=== PATIENT | male | born 1935 | race Caucasian/White ===

== ENCOUNTER 2022-05-27 10:23 | Outpatient (CLI) | payer MEDICARE, BC | END 2022-05-27 10:24 | disposition home or self-care (01) | LOC: BICULT 10:23 | PROVIDERS: ATTEND Internal Medicine Nephrology | DX: N18.30 Chronic kidney disease, stage 3 unspecified (principal) | CPT/HCPCS: 76770 ==

== ENCOUNTER 2023-03-29 16:40 | Inpatient (IN) | payer MEDICARE, BC ==
[2023-03-29] MEDS ORDERED: niCARdipine 25 MG/10 ML SDV ONE (17:28)
[2023-03-29 17:37] LABS: Bilirubin Negative (Negative); Blood, Urine Negative (Negative); CAUTI Indications for Culture Alt mental st,lethar; Clarity Clear (Clear); Glucose, Urine (Dipstick) Normal (Negative); Ketone, Urine Negative (Negative); Leukocyte Negative Leu/uL (Negative); Nitrite Negative (Negative); Protein, Urine (Dipstick) Negative (Neg-Trace); RBC/HPF 0-3 HPF (0-3); Specific Gravity, Urine 1.016 (1.002-1.036); Squamous Epithelial None Seen HPF (0-3); Urobilinogen Normal mg/dL (Less than 2); WBC/HPF 0-3 HPF (0-3)
[2023-03-29 17:42] LABS: Bacteria/HPF 1+ HPF (None Seen)
[2023-03-29 17:42] LABS: #Basophils 0.1 thou/uL (0.0-0.2); #Eosinphils 0.1 thou/uL (0.0-0.7); #Monocytes 0.9 thou/uL (0.11-0.59); #Neutrophils 8.7 thou/uL (1.40-6.50); %Basophils 0.6 % (0.0-1.0); %Lymphocytes 15.5 % (21.0-51.0); %Monocytes 7.4 % (0.0-10.0); %Neutrophils 74.9 % (42.0-75.0); Hematocrit 40.5 % (42.0-52.0); Mean Corpuscular HGB CONC 32.1 g/dL (32.0-36.0); Mean Corpuscular Hemoglobin 29.8 pg (27.0-31.0); Mean Corpuscular Volume 92.9 fl (78.0-98.0); Mean Platelet Volume 11.9 fL (7.4-10.4); Platelet Count 138 10x3/uL (130-400); RBC Distribution Width 14.6 % (11.5-14.5); Red Blood Cell (RBC) Count 4.36 mill/uL (4.70-6.10); White Blood Cell (WBC) Count 11.6 10x3/uL (4.8-10.8)
[2023-03-29] MEDS ORDERED: Boostrix 0.5 ML (Tdap) VIAL (>/=7 yrs of age) ONE (17:42)
[2023-03-29 17:43] LABS: Urine Culture Reflex No No
[2023-03-29] MEDS ORDERED: Glucagon 1 MG/ML KIT IM PRN (18:00)
[2023-03-29] MEDS ORDERED: Dextrose 5% in Water 1,000 ML IV PRN (18:00)
[2023-03-29] MEDS ORDERED: TETANUS, DIPHTHERIA TOX,ADULT (TDVAX) 0.5 ML VIAL IM ONE (18:00)
[2023-03-29] MEDS ORDERED: Dextrose 50% Abboject 50 ML SYRINGE SLOW IVP PRN (18:00)
[2023-03-29 18:03] LABS: ALT (SGPT) 12 U/L (8-55); AST (SGOT) 20 U/L (5-34); Albumin 3.8 g/dL (3.4-4.8); Alkaline Phosphatase 68 U/L (40-110); Anion Gap 14 mmol/L (10-20); BUN (Urea Nitrogen) 19 mg/dL (8.4-25.7); Bilirubin, Total 0.3 mg/dL (0.2-1.2); Calc. Creatinine Clearance 0 mL/min (70-130); Carbon Dioxide 22 mmol/L (23-31); Chloride 108 mmol/L (98-107); Estimated GFR 62; Globulin 2.5 g/dL (2.4-3.5); Glucose 93 mg/dL (83-110); Potassium 3.5 mmol/L (3.5-5.1); Protein, Total 6.3 g/dL (5.8-8.1); Sodium 140 mmol/L (136-145)
[2023-03-29] MEDS ORDERED: Morphine 2 MG/ML VIAL SLOW IVP PRN (18:11)
[2023-03-29] MEDS ORDERED: Ipratropium/Albuterol 3 ML NEB NEB PRN (18:11)
[2023-03-29] MEDS ORDERED: Ondansetron ODT 4 MG TAB PO PRN (18:11)
[2023-03-29] MEDS ORDERED: niCARdipine 25 MG in Sodium Chloride 0.9% 250 ML 250 ML IVPB SCH (18:45)
[2023-03-29] MEDS ORDERED: Electrolyte Replacement Protocol 1 EACH FS SCH (19:00)
[2023-03-29] MEDS: Acetaminophen 325 MG TAB PO SCH ×2 (21:08→23:32)
[2023-03-29 21:10] VITALS: BMI 26.0
[2023-03-29] MEDS: niCARdipine 50 MG, Admixture Fee 1 EACH in Sodium Chloride 0.9% 250 ML 230 ML IV SCH (21:32)
[2023-03-29] MEDS: Famotidine 20 MG TAB PO SCH (21:44)
[2023-03-30] MEDS: niCARdipine 50 MG, Admixture Fee 1 EACH in Sodium Chloride 0.9% 250 ML 230 ML IV SCH ×2 (00:53→07:48)
[2023-03-30 04:18] LABS: Phosphorus 3.7 mg/dL (2.3-4.7)
[2023-03-30 04:21] LABS: Anion Gap 14 mmol/L (10-20); BUN (Urea Nitrogen) 25 mg/dL (8.4-25.7); Calc. Creatinine Clearance 57 mL/min (70-130); Calcium 8.5 mg/dL (7.8-10.44); Carbon Dioxide 23 mmol/L (23-31); Chloride 109 mmol/L (98-107); Estimated GFR 60; Glucose 123 mg/dL (83-110); Magnesium 1.9 mg/dL (1.6-2.6); Potassium 3.7 mmol/L (3.5-5.1); Sodium 142 mmol/L (136-145)
[2023-03-30 04:22] LABS: INR-International Normal Ratio 1.1; PTT 27.8 sec (22.9-36.1); Prothrombin Time 14.8 sec (12.0-14.7)
[2023-03-30] MEDS: Acetaminophen 325 MG TAB PO SCH ×3 (05:50→17:32)
[2023-03-30] MEDS: Famotidine 20 MG TAB PO SCH ×2 (07:45→21:24)
[2023-03-30] MEDS ORDERED: Magnesium 2 GM/50 ML(in water) 2 GM in Premix 1 BAG IVPB SCH (08:00)
[2023-03-30] MEDS ORDERED: Hydrochlorothiazide 25 MG TAB PO SCH (09:00)
[2023-03-30] MEDS ORDERED: Atenolol 25 MG TAB PO SCH ×3 (09:00→16:15)
[2023-03-30] MEDS: Levothyroxine Sodium 100 MCG TAB PO SCH (09:01)
[2023-03-30] MEDS: HumaLOG 300 UNITS/3 ML VIAL SC PRN ×2 (11:34→17:32)
[2023-03-30] MEDS: Labetalol HCl 100 MG/20 ML VIAL SLOW IVP PRN (20:07)
[2023-03-30] MEDS: Lorazepam 2 MG/ML VIAL SLOW IVP PRN (20:31)
[2023-03-30] MEDS ORDERED: OLANZapine 10 MG VIAL IM SCH (21:30)
[2023-03-30] MEDS ORDERED: Sterile Water 10 ML VIAL FS PRN (21:30)
[2023-03-30] MEDS ORDERED: HumaLOG 300 UNITS/3 ML VIAL SC PRN (21:39)
[2023-03-31] MEDS: Acetaminophen 325 MG TAB PO SCH ×5 (00:56→18:07)
[2023-03-31] MEDS: Labetalol HCl 100 MG/20 ML VIAL SLOW IVP PRN ×2 (01:12→05:02)
[2023-03-31] MEDS: Lorazepam 2 MG/ML VIAL SLOW IVP PRN (02:32)
[2023-03-31] MEDS: hydrALAZINE 20 MG/ML VIAL SLOW IVP PRN ×2 (03:08→07:06)
[2023-03-31 06:56] LABS: #Basophils 0.1 thou/uL (0.0-0.2); #Eosinphils 0.1 thou/uL (0.0-0.7); #Monocytes 1.4 thou/uL (0.11-0.59); #Neutrophils 8.5 thou/uL (1.40-6.50); %Basophils 0.5 % (0.0-1.0); %Eosinophils 1.1 % (0.0-10.0); %Lymphocytes 19.1 % (21.0-51.0); %Monocytes 10.9 % (0.0-10.0); %Neutrophils 68.1 % (42.0-75.0); Hematocrit 38.5 % (42.0-52.0); Hemoglobin 12.5 g/dL (14.0-18.0); Mean Corpuscular HGB CONC 32.5 g/dL (32.0-36.0); Mean Corpuscular Hemoglobin 29.6 pg (27.0-31.0); Mean Platelet Volume 12.3 fL (7.4-10.4); Platelet Count 143 10x3/uL (130-400); RBC Distribution Width 14.6 % (11.5-14.5); Red Blood Cell (RBC) Count 4.23 mill/uL (4.70-6.10); White Blood Cell (WBC) Count 12.4 10x3/uL (4.8-10.8)
[2023-03-31 07:20] LABS: Anion Gap 16 mmol/L (10-20); BUN (Urea Nitrogen) 24 mg/dL (8.4-25.7); Calc. Creatinine Clearance 48 mL/min (70-130); Calcium 9.1 mg/dL (7.8-10.44); Carbon Dioxide 24 mmol/L (23-31); Chloride 104 mmol/L (98-107); Estimated GFR 49; Glucose 134 mg/dL (83-110); Potassium 3.8 mmol/L (3.5-5.1); Sodium 140 mmol/L (136-145)
[2023-03-31] MEDS ORDERED: Sodium Chloride 0.9% 500 ML IV SCH (08:15)
[2023-03-31] MEDS: Famotidine 20 MG TAB PO SCH ×2 (08:21→21:18)
[2023-03-31] MEDS: Levothyroxine Sodium 100 MCG TAB PO SCH (08:21)
[2023-03-31] MEDS: Amlodipine 10 MG TAB PO SCH (08:35)
[2023-03-31] MEDS: Tamsulosin HCl 0.4 MG CAP PO SCH (08:35)
[2023-03-31] MEDS ORDERED: Atenolol 25 MG TAB PO SCH (09:00)
[2023-03-31 12:25] LABS: Phosphorus 3.2 mg/dL (2.3-4.7)
[2023-03-31 12:41] LABS: Troponin I 1.006 ng/mL (< 0.028)
[2023-03-31] MEDS ORDERED: Magnesium 2 GM/50 ML(in water) 2 GM in Premix 1 BAG IVPB SCH (14:00)
[2023-03-31 15:58] LABS: Troponin I 0.952 ng/mL (< 0.028)
[2023-03-31] MEDS: HumaLOG 300 UNITS/3 ML VIAL SC PRN (17:16)
[2023-03-31 18:19] LABS: Troponin I 0.803 ng/mL (< 0.028)
[2023-03-31] MEDS: Melatonin 3 MG TAB PO SCH (21:18)
[2023-03-31] MEDS: QUEtiapine 25 MG TAB PO SCH (21:19)
[2023-04-01] MEDS: Acetaminophen 325 MG TAB PO SCH ×4 (01:14→17:22)
[2023-04-01] MEDS: hydrALAZINE 20 MG/ML VIAL SLOW IVP PRN ×2 (01:38→04:48)
[2023-04-01] MEDS: HumaLOG 300 UNITS/3 ML VIAL SC PRN ×2 (05:34→12:36)
[2023-04-01 07:02] LABS: Magnesium 2.2 mg/dL (1.6-2.6); Phosphorus 2.9 mg/dL (2.3-4.7)
[2023-04-01] MEDS: Levothyroxine Sodium 100 MCG TAB PO SCH (08:17)
[2023-04-01 08:40] LABS: #Eosinphils 0.2 thou/uL (0.0-0.7); #Neutrophils 7.8 thou/uL (1.40-6.50); %Basophils 0.2 % (0.0-1.0); %Eosinophils 1.6 % (0.0-10.0); %Lymphocytes 14.8 % (21.0-51.0); %Monocytes 9.7 % (0.0-10.0); %Neutrophils 73.4 % (42.0-75.0); Hematocrit 38.2 % (42.0-52.0); Hemoglobin 12.6 g/dL (14.0-18.0); Mean Corpuscular Hemoglobin 30.1 pg (27.0-31.0); Mean Corpuscular Volume 91.4 fl (78.0-98.0); Mean Platelet Volume 11.5 fL (7.4-10.4); Platelet Count 159 10x3/uL (130-400); RBC Distribution Width 14.6 % (11.5-14.5); Red Blood Cell (RBC) Count 4.18 mill/uL (4.70-6.10); White Blood Cell (WBC) Count 10.6 10x3/uL (4.8-10.8)
[2023-04-01] MEDS: Senokot S 8.6-50 MG TAB PO SCH ×2 (09:31→21:16)
[2023-04-01] MEDS: Amlodipine 10 MG TAB PO SCH (09:31)
[2023-04-01] MEDS: Polyethylene Glycol 3350 17 GM Packet PO SCH (09:31)
[2023-04-01] MEDS: Tamsulosin HCl 0.4 MG CAP PO SCH (09:31)
[2023-04-01 14:53] LABS: Anion Gap 16 mmol/L (10-20); BUN (Urea Nitrogen) 29 mg/dL (8.4-25.7); Calc. Creatinine Clearance 43 mL/min (70-130); Calcium 9.5 mg/dL (7.8-10.44); Carbon Dioxide 26 mmol/L (23-31); Chloride 103 mmol/L (98-107); Estimated GFR 43; Glucose 152 mg/dL (83-110); Potassium 3.6 mmol/L (3.5-5.1); Sodium 141 mmol/L (136-145)
[2023-04-01] MEDS ORDERED: ALPRAZolam 1 MG TAB PO PRN (14:55)
[2023-04-01] MEDS: Citalopram 20 MG TAB PO SCH (17:21)
[2023-04-01] MEDS ORDERED: Famotidine 20 MG TAB PO SCH (21:00)
[2023-04-01] MEDS: Melatonin 3 MG TAB PO SCH (21:16)
[2023-04-01] MEDS: Rosuvastatin 20 MG TAB PO SCH (21:16)
[2023-04-01] MEDS: QUEtiapine 25 MG TAB PO SCH (21:16)
[2023-04-02] MEDS: Acetaminophen 325 MG TAB PO SCH ×5 (01:45→23:58)
[2023-04-02 04:51] LABS: Anion Gap 14 mmol/L (10-20); BUN (Urea Nitrogen) 35 mg/dL (8.4-25.7); Calc. Creatinine Clearance 45 mL/min (70-130); Calcium 8.6 mg/dL (7.8-10.44); Carbon Dioxide 24 mmol/L (23-31); Chloride 107 mmol/L (98-107); Estimated GFR 45; Glucose 113 mg/dL (83-110); Potassium 3.2 mmol/L (3.5-5.1); Sodium 142 mmol/L (136-145)
[2023-04-02 04:59] LABS: Troponin I 0.375 ng/mL (< 0.028)
[2023-04-02] MEDS: Levothyroxine Sodium 100 MCG TAB PO SCH (06:08)
[2023-04-02] MEDS ORDERED: Potassium Chloride 20 MEQ TAB PO SCH (08:00)
[2023-04-02] MEDS: Polyethylene Glycol 3350 17 GM Packet PO SCH (09:20)
[2023-04-02] MEDS: Gabapentin 100 MG CAP PO SCH (09:21)
[2023-04-02] MEDS: Tamsulosin HCl 0.4 MG CAP PO SCH (09:21)
[2023-04-02] MEDS: CO Q-10 CAPSULE 100 MG PO SCH (09:22)
[2023-04-02] MEDS: Senokot S 8.6-50 MG TAB PO SCH ×2 (09:22→20:28)
[2023-04-02] MEDS: Citalopram 20 MG TAB PO SCH ×2 (09:23→17:29)
[2023-04-02] MEDS: Amlodipine 10 MG TAB PO SCH (09:25)
[2023-04-02] MEDS: HumaLOG 300 UNITS/3 ML VIAL SC PRN ×2 (12:24→17:33)
[2023-04-02] MEDS ORDERED: Potassium Phosphate 30 MMOL in Sodium Chloride 0.9% 250 ML 250 ML IVPB SCH (13:30)
[2023-04-02 14:12] LABS: Potassium 3.9 mmol/L (3.5-5.1)
[2023-04-02] MEDS: Melatonin 3 MG TAB PO SCH (20:27)
[2023-04-02] MEDS: Rosuvastatin 20 MG TAB PO SCH (20:28)
[2023-04-03] MEDS: Acetaminophen 325 MG TAB PO SCH ×2 (05:44→12:15)
[2023-04-03] MEDS: Levothyroxine Sodium 100 MCG TAB PO SCH (05:44)
[2023-04-03] MEDS ORDERED: Lidocaine 1% (PF) 30 ML VIAL ONE (07:00)
[2023-04-03] MEDS ORDERED: Gentamicin 80 MG/2 ML VIAL ONE (07:00)
[2023-04-03] MEDS ORDERED: Midazolam HCl 2 mg/2 ml Vial ONE (07:00)
[2023-04-03] MEDS ORDERED: CEFAZOLIN 2 GM VIAL ONE (07:00)
[2023-04-03] MEDS ORDERED: CEFAZOLIN 1 GM VIAL ONE (07:00)
[2023-04-03] MEDS ORDERED: Atenolol 25 MG TAB PO SCH (09:00)
[2023-04-03] MEDS: CO Q-10 CAPSULE 100 MG PO SCH (10:21)
[2023-04-03] MEDS: Polyethylene Glycol 3350 17 GM Packet PO SCH (10:21)
[2023-04-03] MEDS: Gabapentin 100 MG CAP PO SCH (10:22)
[2023-04-03] MEDS: Tamsulosin HCl 0.4 MG CAP PO SCH (10:22)
[2023-04-03] MEDS: Citalopram 20 MG TAB PO SCH ×2 (10:22→17:10)
[2023-04-03] MEDS: Amlodipine 10 MG TAB PO SCH (10:22)
[2023-04-03] MEDS: Senokot S 8.6-50 MG TAB PO SCH (10:23)
[2023-04-03] MEDS: hydrALAZINE 20 MG/ML VIAL SLOW IVP PRN ×2 (14:04→17:19)
[2023-04-03 17:15] VITALS: BP 167/74; TEMP 98.1
[2023-04-03] MEDS: HumaLOG 300 UNITS/3 ML VIAL SC PRN (17:19)
[2023-04-04] MEDS ORDERED: Amlodipine 10 MG TAB PO SCH (09:00)
[2023-04-04] MEDS ORDERED: Amlodipine 5 MG TAB PO SCH (09:00)
== END 2023-04-03 18:08 | disposition swing bed (61) | DRG 41 ==
LOC: ERS 16:40 → CCU 18:23 → 2NO 04-01 16:44
PROVIDERS: ADMIT Specialist; ATTEND Specialist
PROC: 02H63JZ Insertion of Pacemaker Lead into Right Atrium, Percutaneous Approach (ICD-10-PCS; principal; 2023-04-03)
PROC: 02HK3JZ Insertion of Pacemaker Lead into Right Ventricle, Percutaneous Approach (ICD-10-PCS; 2023-04-03)
PROC: 0JH606Z Insertion of Pacemaker, Dual Chamber into Chest Subcutaneous Tissue and Fascia, Open Approach (ICD-10-PCS; 2023-04-03)
DX: S06.6XAA Traumatic subarachnoid hemorrhage with loss of consciousness status unknown, initial encounter (principal); G93.40 Encephalopathy, unspecified; N17.9 Acute kidney failure, unspecified; I49.5 Sick sinus syndrome; S00.03XA Contusion of scalp, initial encounter; R10.9 Unspecified abdominal pain; E78.5 Hyperlipidemia, unspecified; S00.83XA Contusion of other part of head, initial encounter; W18.30XA Fall on same level, unspecified, initial encounter; R40.2410 Glasgow coma scale score 13-15, unspecified time; N18.9 Chronic kidney disease, unspecified; I12.9 Hypertensive chronic kidney disease with stage 1 through stage 4 chronic kidney disease, or unspecified chronic kidney disease; E11.22 Type 2 diabetes mellitus with diabetic chronic kidney disease; E03.9 Hypothyroidism, unspecified; N40.0 Benign prostatic hyperplasia without lower urinary tract symptoms; E75.6 Lipid storage disorder, unspecified; G89.11 Acute pain due to trauma; Z79.890 Hormone replacement therapy; Z79.899 Other long term (current) drug therapy; Z98.890 Other specified postprocedural states; Z79.84 Long term (current) use of oral hypoglycemic drugs
CPT/HCPCS: 33208; 36415; 36416; 70450; 71045; 72125; 80048; 80053; 81001; 83735; 83880; 84100; 84484; 85025; 85610; 85730; 90471; 90714; 90715; 93005; 93010; 93306; 93880; 96365; 96366; C1785; C1898; J0360; J0690; J1580; J1815; J2001; J2060; J2250; J3475; J7030; J7050

== ENCOUNTER 2023-12-22 19:42 | Inpatient (IN) | payer MEDICARE, BC ==
[2023-12-22] MEDS ORDERED: Ondansetron ODT 4 MG TAB PO PRN (21:03)
[2023-12-22] MEDS ORDERED: Ondansetron PF 4 MG/2 ML Vial IVP PRN (21:03)
[2023-12-22] MEDS ORDERED: Acetaminophen 650 MG Suppository PR PRN (21:03)
[2023-12-22 22:32] LABS: #Basophils 0.05 10x3/uL (0.0-0.2); %Basophils 0.4 % (0.0-1.0); %Eosinophils 2.3 % (0.0-10.0); %Lymphocytes 15.2 % (21.0-51.0); %Monocytes 11.4 % (0.0-10.0); %Neutrophils 70.2 % (42.0-75.0); Hematocrit 38.7 % (42.0-52.0); Hemoglobin 12.6 g/dL (14.0-18.0); Mean Corpuscular HGB CONC 32.6 g/dL (32.0-36.0); Mean Corpuscular Hemoglobin 27.9 pg (27.0-31.0); Mean Corpuscular Volume 85.6 fL (78.0-98.0); Mean Platelet Volume 11.2 fL (7.4-10.4); Platelet Count 221 10x3/uL (130-400); RBC Distribution Width 15.2 % (11.5-14.5); Red Blood Cell (RBC) Count 4.52 mill/uL (4.70-6.10)
[2023-12-22] MEDS: Melatonin 3 MG TAB PO SCH (22:32)
[2023-12-22] MEDS ORDERED: cloNIDine 0.1 MG TAB PO PRN (22:37)
[2023-12-22] MEDS ORDERED: ALPRAZolam 0.5 MG TAB PO PRN (22:37)
[2023-12-23 00:05] LABS: Anion Gap 11 mmol/L (10-20); BUN (Urea Nitrogen) 15 mg/dL (8.4-25.7); Calc. Creatinine Clearance 0 mL/min (70-130); Carbon Dioxide 23 mmol/L (23-31); Chloride 110 mmol/L (98-107); Estimated GFR 60; Glucose 85 mg/dL (83-110); Potassium 2.9 mmol/L (3.5-5.1); Sodium 141 mmol/L (136-145)
[2023-12-23] MEDS ORDERED: Electrolyte Replacement Protocol 1 EACH FS SCH (00:30)
[2023-12-23 00:52] VITALS: BMI 28.0
[2023-12-23] MEDS: Potassium Chloride 20 MEQ TAB PO SCH (01:09)
[2023-12-23] MEDS ORDERED: Electrolyte Replacement Protocol 1 EACH FS PRN (03:30)
[2023-12-23] MEDS ORDERED: Glucagon 1 MG/ML KIT IM PRN (03:31)
[2023-12-23] MEDS ORDERED: Dextrose 5% in Water 1,000 ML IV PRN (03:31)
[2023-12-23] MEDS ORDERED: Dextrose 50% Abboject 50 ML SYRINGE SLOW IVP PRN (03:31)
[2023-12-23] MEDS ORDERED: Insulin Lispro 100 UNIT/ML 10 ML VIAL SC PRN (03:39)
[2023-12-23] MEDS: Levothyroxine Sodium 100 MCG TAB PO SCH (06:05)
[2023-12-23 06:23] LABS: Anion Gap 13 mmol/L (10-20); BUN (Urea Nitrogen) 15 mg/dL (8.4-25.7); Calc. Creatinine Clearance 61 mL/min (70-130); Carbon Dioxide 22 mmol/L (23-31); Chloride 109 mmol/L (98-107); Estimated GFR 68; Glucose 57 mg/dL (83-110); Magnesium 1.8 mg/dL (1.6-2.6); Potassium 3.1 mmol/L (3.5-5.1); Sodium 141 mmol/L (136-145)
[2023-12-23] MEDS: Famotidine/PF 20 mg/2ml Vial SLOW IVP SCH (09:38)
[2023-12-23] MEDS: Ciprofloxacin Lactate/D5W 400 MG in Premix 1 BAG IVPB SCH (09:49)
[2023-12-23] MEDS: Magnesium 2 GM/50 ML(in water) 2 GM in Premix 1 BAG IVPB SCH (09:49)
[2023-12-23] MEDS: Atenolol 50 MG TAB PO SCH (09:49)
[2023-12-23] MEDS: Amlodipine 5 MG TAB PO SCH (09:49)
[2023-12-23] MEDS: Famotidine 20 MG TAB PO SCH (09:51)
[2023-12-23] MEDS: glipiZIDE 5 MG TAB PO SCH (09:51)
[2023-12-23] MEDS: Nateglinide 120 MG TAB PO SCH (09:51)
[2023-12-23] MEDS: CO Q-10 CAPSULE 100 MG PO SCH (09:51)
[2023-12-23] MEDS: Citalopram 10 MG TAB PO SCH (09:51)
[2023-12-23] MEDS: Empagliflozin 10 MG TAB PO SCH (09:52)
[2023-12-23] MEDS: Saccharomyces boulardii 250 MG CAP PO SCH (16:24)
[2023-12-23] MEDS: Vancomycin HCl 125 MG Capsule PO SCH (16:24)
[2023-12-23] MEDS: NS 0.9% w/ 20 MEQ KCL 1,000 ML/1,000 ML BAG IV SCH (21:39)
[2023-12-23] MEDS: Melatonin 3 MG TAB PO SCH (21:50)
[2023-12-23] MEDS: Multivitamin W/ Minerals 1 TAB PO SCH (21:50)
[2023-12-23] MEDS: Rosuvastatin 20 MG TAB PO SCH (21:51)
[2023-12-23] MEDS: metroNIDAZOLE 500 MG in Premix 1 BAG IVPB SCH (21:56)
[2023-12-24 06:57] LABS: Hematocrit 37.4 % (42.0-52.0); Hemoglobin 12.2 g/dL (14.0-18.0); Mean Corpuscular HGB CONC 32.6 g/dL (32.0-36.0); Mean Corpuscular Hemoglobin 28.2 pg (27.0-31.0); Mean Corpuscular Volume 86.4 fL (78.0-98.0); Mean Platelet Volume 11.2 fL (7.4-10.4); Platelet Count 245 10x3/uL (130-400); RBC Distribution Width 15.4 % (11.5-14.5); Red Blood Cell (RBC) Count 4.33 mill/uL (4.70-6.10)
[2023-12-24 07:18] LABS: Anion Gap 13 mmol/L (10-20); BUN (Urea Nitrogen) 16 mg/dL (8.4-25.7); Calc. Creatinine Clearance 58 mL/min (70-130); Calcium 8.2 mg/dL (7.8-10.44); Carbon Dioxide 21 mmol/L (23-31); Chloride 109 mmol/L (98-107); Estimated GFR 65; Glucose 99 mg/dL (83-110); Magnesium 2.2 mg/dL (1.6-2.6); Potassium 3.6 mmol/L (3.5-5.1); Sodium 139 mmol/L (136-145)
[2023-12-24 09:29] LABS: Band 24 % (5-11); Eosinophils 3 % (0-10); Large Platelets 3.4 % (0-5); Lymphocytes 9 % (21-51); Monocytes 3 % (0-10); Neutrophil 58 % (42-75); Platelet Adequacy Comment Platelets Normal; RBC Morphology Within Normal Limits; Reactive Lymphocytes 3 % (0-10)
[2023-12-24 15:30] LABS: Campy jejuni + coli by PCR Negative (Negative); STEC Shiga Toxin 1+2 Negative (Negative); Salmonella spp. by PCR Negative (Negative); Shigella spp + EIEC by PCR Negative (Negative)
[2023-12-25 05:57] LABS: #Basophils 0.06 10x3/uL (0.0-0.2); %Basophils 0.5 % (0.0-1.0); %Eosinophils 2.9 % (0.0-10.0); %Lymphocytes 14.3 % (21.0-51.0); %Monocytes 5.9 % (0.0-10.0); %Neutrophils 75.9 % (42.0-75.0); Hematocrit 37.7 % (42.0-52.0); Hemoglobin 12.6 g/dL (14.0-18.0); Mean Corpuscular HGB CONC 33.4 g/dL (32.0-36.0); Mean Corpuscular Hemoglobin 28.5 pg (27.0-31.0); Mean Corpuscular Volume 85.3 fL (78.0-98.0); Mean Platelet Volume 11.1 fL (7.4-10.4); Platelet Count 242 10x3/uL (130-400); RBC Distribution Width 15.5 % (11.5-14.5); Red Blood Cell (RBC) Count 4.42 mill/uL (4.70-6.10)
[2023-12-25] MEDS: Acetaminophen 325 MG TAB PO PRN (06:09)
[2023-12-25 06:10] LABS: Albumin 2.1 g/dL (3.4-4.8); Phosphorus 3.1 mg/dL (2.3-4.7)
[2023-12-25 06:17] LABS: Anion Gap 11 mmol/L (10-20); BUN (Urea Nitrogen) 16 mg/dL (8.4-25.7); Calc. Creatinine Clearance 58 mL/min (70-130); Carbon Dioxide 20 mmol/L (23-31); Chloride 110 mmol/L (98-107); Estimated GFR 65; Glucose 58 mg/dL (83-110); Magnesium 2.1 mg/dL (1.6-2.6); Potassium 3.1 mmol/L (3.5-5.1); Sodium 138 mmol/L (136-145)
[2023-12-25] MEDS: Potassium Bicarbonate/Cit Ac 20 MEQ TAB PO SCH (08:22)
[2023-12-25 13:01] LABS: Potassium 3.6 mmol/L (3.5-5.1)
[2023-12-25] MEDS: Insulin Lispro 100 UNIT/ML 10 ML VIAL SC PRN (17:42)
[2023-12-26] MEDS: Amlodipine 10 MG TAB PO SCH (10:07)
[2023-12-26 11:24] LABS: Anion Gap 13 mmol/L (10-20); BUN (Urea Nitrogen) 13 mg/dL (8.4-25.7); Calc. Creatinine Clearance 70 mL/min (70-130); Calcium 8.1 mg/dL (7.8-10.44); Carbon Dioxide 18 mmol/L (23-31); Chloride 111 mmol/L (98-107); Estimated GFR 81; Glucose 166 mg/dL (83-110); Potassium 3.7 mmol/L (3.5-5.1); Sodium 138 mmol/L (136-145)
[2023-12-28 06:08] LABS: Anion Gap 14 mmol/L (10-20); BUN (Urea Nitrogen) 11 mg/dL (8.4-25.7); Calc. Creatinine Clearance 73 mL/min (70-130); Calcium 8.7 mg/dL (7.8-10.44); Carbon Dioxide 22 mmol/L (23-31); Chloride 110 mmol/L (98-107); Estimated GFR 84; Glucose 75 mg/dL (83-110); Potassium 3.5 mmol/L (3.5-5.1); Sodium 142 mmol/L (136-145)
[2023-12-28] MEDS: Potassium Chloride 20 MEQ TAB PO SCH (09:35)
[2023-12-28 11:37] VITALS: BP 179/77; TEMP 98.3
== END 2023-12-28 13:20 | DRG 372 ==
LOC: INTOOBSV 19:42 → 2NO 19:42 → OBSVTOIN 12-23 13:38
PROVIDERS: ADMIT Internal Medicine; ATTEND Family Medicine
DX: A04.72 Enterocolitis due to Clostridium difficile, not specified as recurrent (principal); I50.32 Chronic diastolic (congestive) heart failure; N17.9 Acute kidney failure, unspecified; E11.9 Type 2 diabetes mellitus without complications; E03.9 Hypothyroidism, unspecified; I11.0 Hypertensive heart disease with heart failure; E78.5 Hyperlipidemia, unspecified; E87.6 Hypokalemia; Z79.82 Long term (current) use of aspirin; Z91.040 Latex allergy status; Z79.899 Other long term (current) drug therapy; Z79.84 Long term (current) use of oral hypoglycemic drugs; Z98.890 Other specified postprocedural states; Z95.0 Presence of cardiac pacemaker; Z79.4 Long term (current) use of insulin
CPT/HCPCS: 36415; 36416; 80048; 82040; 82274; 83036; 83630; 83735; 84100; 85025; 87324; 87449; 87505; 96374; G0378; J0744; J1815; J3475; J3480; S0028